=== PATIENT | male | born 1990 | race Caucasian/White ===

== ENCOUNTER → 2018-10-04 | Outpatient (CLI) | payer OTHER, MEDICAID ==
[~2018-10-04] VITALS: Ht 152.4 cm; Wt 56.8 kg
[~2018-10-04] MED LIST: CLONAZEPAM0.5 M1 PO; DEPAKENE 250 MG/1 ML PO; LEVOFLOXACIN500 M1 PO; LIORESAL I500 MCG/ML
[2018-10-04 17:47] VITALS: BP 116/78
== END ==
LOC: AMSURD 17:29
DX: R33.9 Retention of urine, unspecified (principal)

== ENCOUNTER → 2018-10-04 | Outpatient (CLI) | payer OTHER, MEDICAID ==
[2018-10-04 06:30] VITALS: BP 120/86
[2018-10-04 08:03] LABS: URINE APPEARANCE CLEAR; URINE BILIRUBIN NEGATIVE (NEGATIVE); URINE BLOOD NEGATIVE (NEGATIVE); URINE COLOR DARK YELLOW; URINE GLUCOSE NEGATIVE (NEGATIVE); URINE KETONE SMALL (NEGATIVE); URINE LEUKOCYTE ESTERASE NEGATIVE (NEGATIVE); URINE NITRATE NEGATIVE (NEGATIVE); URINE PROTEIN(semi-quant) 1+ mg/dL (NEGATIVE); URINE UROBILINOGEN NORMAL (NORMAL)
[2018-10-04 08:04] LABS: URINE MUCUS PRESENT (NOT PRESENT)
== END ==
LOC: AMSURD 06:25
PROVIDERS: Internal Medicine
DX: R33.9 Retention of urine, unspecified (principal)

== ENCOUNTER → 2018-10-05 | Outpatient (CLI) | payer OTHER, MEDICAID ==
[2018-10-05 05:40] VITALS: BP 101/77
== END ==
LOC: AMSURD 17:40
DX: R33.9 Retention of urine, unspecified (principal)

== ENCOUNTER → 2020-06-18 | Outpatient (CLI) | payer OTHER, MEDICAID ==
[2018-10-05 05:40] VITALS: BP 101/77
[2020-06-18 10:30] LABS: HEMATOCRIT 45.2 % (42.0-52.0); MEAN CELL VOLUME 99 fl (78-100); MEAN CORPUSCULAR HEMOGLOBIN 33 pg (27-31); MEAN CORPUSCULAR HGB CONC 33 g/dL (33-37); PLATELET COUNT 112 K/mm3 (130-400); RED BLOOD COUNT 4.56 M/mm3 (4.20-5.60); RED CELL DISTRIBUTION WIDTH 13.5 % (11.5-14.5); WHITE BLOOD COUNT 6.1 K/mm3 (4.8-10.8)
[2020-06-18 10:51] LABS: MEAN PLATELET VOLUME 12.2 fl (7.4-10.4)
[2020-06-18 10:52] LABS: LYMPHOCYTE 26 % (20-51); MONOCYTE 17 % (3-10); NEUTROPHILS 55 % (42-75)
== END ==
LOC: LAB 10:14
PROVIDERS: Family Medicine
DX: Z20.828 Contact with and (suspected) exposure to other viral communicable diseases (principal); G40.909 Epilepsy, unspecified, not intractable, without status epilepticus; K90.9 Intestinal malabsorption, unspecified

== ENCOUNTER → 2020-07-21 | Outpatient (CLI) | payer OTHER, MEDICAID ==
[2018-10-05 05:40] VITALS: BP 101/77
== END ==
LOC: LAB 07:27
DX: R68.83 Chills (without fever) (principal); Z20.828 Contact with and (suspected) exposure to other viral communicable diseases

== ENCOUNTER → 2021-07-04 | Outpatient (CLI) | payer OTHER, MEDICAID | LOC: LAB 07:48 | DX: Z20.822 Contact with and (suspected) exposure to COVID-19 (principal) ==

== ENCOUNTER → 2021-09-14 | Outpatient (CLI) | payer OTHER, MEDICAID | LOC: LAB 06:16 | DX: R50.9 Fever, unspecified (principal); Z20.822 Contact with and (suspected) exposure to COVID-19 ==

== ENCOUNTER → 2022-02-18 | Outpatient (CLI) | payer OTHER, MEDICAID | LOC: LAB 13:23 | DX: R05.1 Acute cough (principal); Z20.822 Contact with and (suspected) exposure to COVID-19 ==

== ENCOUNTER → 2024-03-14 | Outpatient (REF) | payer OTHER, MEDICAID ==
[2024-03-14 13:20] LABS: HEMATOCRIT 43.9 % (42.0-52.0); HEMOGLOBIN 14.2 g/dL (13.5-18.0); MEAN CELL VOLUME 103 fl (78-100); MEAN CORPUSCULAR HEMOGLOBIN 33 pg (27-31); MEAN CORPUSCULAR HGB CONC 32 g/dL (33-37); MEAN PLATELET VOLUME 10.5 fl (7.4-10.4); PLATELET COUNT 117 K/mm3 (130-400); RED BLOOD COUNT 4.25 M/mm3 (4.20-5.60); RED CELL DISTRIBUTION WIDTH 13.5 % (11.5-14.5); WHITE BLOOD COUNT 11.3 K/mm3 (4.8-10.8)
[2024-03-14 13:24] LABS: ALBUMIN 3.6 g/dL (3.5-5.0)
[2024-03-14 13:26] LABS: CALCIUM 10.3 mg/dL (8.3-10.5)
[2024-03-14 13:27] LABS: TOTAL PROTEIN 6.8 g/dL (6.4-8.3)
[2024-03-14 13:29] LABS: TOTAL BILIRUBIN 0.3 mg/dL (0.2-1.2)
[2024-03-14 13:35] LABS: BAND 15 % (0-10); LYMPHOCYTE 19 % (20-51); MONOCYTE 17 % (3-10); NEUTROPHILS 46 % (42-75)
== END ==
LOC: LAB 12:56
PROVIDERS: Nurse Practitioner Family
DX: R50.9 Fever, unspecified (principal); R05.9 Cough, unspecified; R09.89 Other specified symptoms and signs involving the circulatory and respiratory systems